=== PATIENT | male | born 1940 | race African-American/Black ===

== ENCOUNTER → 2019-03-25 | Outpatient (CLI) | payer MEDICARE ==
--- NOTE | 2019-03-25 09:28 | CARD ---
MR#: [id number] Date of Study: 03/25/2019 Ordering Physician: CRISTAL GARRETT, Referring Physician: CRISTAL GARRETT, Dory: Linnette Barrera APPROVED REPORT EXAM: Two-dimensional and M-mode echocardiogram with Doppler and color Doppler. Other Information Quality : AverageHR: 60bpm INDICATION Murmur 2D DIMENSIONS RVDd2.4 (2.9-3.5cm)Left Atrium(2D)2.8 (1.6-4.0cm) IVSd1.7 (0.7-1.1cm)Aortic Root(2D)2.4 (2.0-3.7cm) LVDd3.5 (3.9-5.9cm)LVOT Diameter2.0 (1.8-2.4cm) PWd1.1 (0.7-1.1cm)LVDs2.1 (2.5-4.0cm) FS (%) 39.8 %SV37.2 ml Aortic Valve AoV Peak Adrian.144.8cm/sAoV VTI32.4cm AO Peak GR.8.4mmHgLVOT Peak Adrian.115.1cm/s AO Mean GR.5mmHgAVA (VMAX)2.39cm2 Mitral Valve MV E Dnzlhrws57.7cm/sMV E Peak Gr.4mmHg MV DECEL [id number] A Wzhnhiby76.5cm/s MV E Mean Gr.1mmHgE/A Ratio0.9 Pulmonary Valve PV Peak Xhwvdvjw976.4cm/s Tricuspid Valve TR P. Botrktty567cw/sRAP OLFANBET6tgAp TR Peak Gr.22qtTxEDYS23swOr Pulmonary Vein S1 Brcfwwql04.9cm/sD2 Kdmfnlam07.1cm/s LEFT VENTRICLE The left ventricle is normal size. There is mild concentric left ventricular hypertrophy. The left ve ntricular systolic function is normal and the ejection fraction is within normal range. The Ejection Fraction is 60-65%. There is normal LV segmental wall motion. Transmitral Doppler flow pattern is Gra de I-abnormal relaxation pattern. RIGHT VENTRICLE The right ventricle is normal size. The right ventricular systolic function is normal. ATRIA The left atrium size is normal. The right atrium size is normal. The interatrial septum is intact wit h no evidence for an atrial septal defect or patent foramen ovale as noted on 2-D or Doppler imaging. AORTIC VALVE The aortic valve is mildly thickened but opens well. Doppler and Color Flow revealed no significant a ortic regurgitation. There is no significant aortic valvular stenosis. MITRAL VALVE The mitral valve is mildly thickened. There is no evidence of mitral valve prolapse. There is no mitr al valve stenosis. Doppler and Color-flow revealed trace to mild mitral regurgitation. TRICUSPID VALVE The tricuspid valve is normal in structure and function. Doppler and Color Flow revealed mild tricusp id regurgitation with an estimated PAP of 24 mmHg. There is no tricuspid valve stenosis. PULMONIC VALVE The pulmonary valve is normal in structure and function. Doppler and Color Flow revealed mild pulmoni c valvular regurgitation. GREAT VESSELS The aortic root is normal in size. The ascending aorta is normal in size. The IVC is normal in size a nd collapses >50% with inspiration. PERICARDIAL EFFUSION There is no pleural effusion. There is no evidence of significant pericardial effusion. Critical Notification Critical Value: No <Conclusion> The left ventricle is normal size. The left ventricular systolic function is normal and the ejection fraction is within normal range. The Ejection Fraction is 60-65%. There is mild concentric left ventricular hypertrophy. Doppler and Color Flow revealed no significant aortic regurgitation. There is no significant aortic valvular stenosis. Doppler and Color-flow revealed trace to mild mitral regurgitation. Doppler and Color Flow revealed mild tricuspid regurgitation with an estimated PAP of 24 mmHg. Signed by : Cristal Garrett MD Electronically Approved : 03/25/2019 09:27:42
== END | disposition home or self-care (01) ==
LOC: ECHO 07:32
PROVIDERS: ATTEND Internal Medicine Cardiovascular Disease
DX: I08.8 Other rheumatic multiple valve diseases (principal)
CPT/HCPCS: 93306